=== PATIENT | female | born 1950 | race Caucasian/White ===

== ENCOUNTER 2023-10-27 04:02 | Emergency (ER) | payer OTHER ==
[2023-10-27 04:22] VITALS: RESP 18; TEMP 97.7; BMI 22.4
[2023-10-27] MEDS ORDERED: ACETAMINOPHEN INJECTION 100 ML IVPB ONE (04:44)
[2023-10-27] MEDS ORDERED: morphine CARPU-JECT 2 MG/1 ML DISP.SYRIN IVPUSH ONE (05:19)
[2023-10-27] MEDS: ALBUTEROL SO4 2.5/IPRATROPIUM 0.5 INH SOL 3 ML VIAL.NEB. NEB SCH (05:26)
[2023-10-27] MEDS: ACETAMINOPHEN 1000 MG/100 ML BAG IVPB ONE (05:26)
[2023-10-27] MEDS: LACTATED RINGERS SOLUTION 1000 ML INFUS.BAG IV ONE (05:26)
[2023-10-27 05:33] LABS: VENOUS BASE EXCESS -3.3 mmol/L (-2-2); VENOUS O2 SATURATION 73.1 % (70-80); VENOUS PCO2 34.3 mmHg (38-52); VENOUS PH 7.399 (7.310-7.410)
[2023-10-27 05:34] LABS: BASO % 0.3 % (0-2.0); EOS % 0.1 % (0-4.5); HEMATOCRIT 40.8 % (32.4-45.2); HEMOGLOBIN 13.5 GM/dL (10.7-15.3); LYMPH % 12.4 % (8-40); MCH 33.2 pg (25.7-33.7); MEAN CELL VOLUME 100.6 fl (80-96); MEAN PLT VOLUME 10.4 fl (7.5-11.1); MONO % 5.1 % (3.8-10.2); NEUT % 82.1 % (42.8-82.8); PLATELET COUNT 139 10^3/uL (134-434); RBC 4.05 M/mm3 (3.60-5.2); RDW 14.1 % (11.6-15.6); WHITE BLOOD COUNT 7.4 K/mm3 (4.0-10.0)
[2023-10-27 05:47] LABS: INR 0.97 (0.83-1.09)
[2023-10-27 05:49] LABS: ACTIVATED PTT 31.8 SECONDS (25.2-36.5)
[2023-10-27 05:55] LABS: POTASSIUM 4.1 mmol/L (3.5-5.1)
[2023-10-27 05:58] LABS: ALBUMIN 3.9 g/dl (3.4-5.0); CALCIUM 9.2 mg/dL (8.5-10.1)
[2023-10-27 05:59] LABS: BLOOD UREA NITROGEN 22.3 mg/dL (7-18); MAGNESIUM 2.1 mg/dL (1.8-2.4)
[2023-10-27] MEDS ORDERED: ALBUTEROL SO4 2.5/IPRATROPIUM 0.5 INH SOL 3 ML VIAL.NEB. NEB SCH (06:00)
[2023-10-27 06:01] LABS: CREATININE 1.1 mg/dL (0.55-1.3)
[2023-10-27 06:02] LABS: PHOSPHOROUS 2.6 mg/dL (2.5-4.9)
[2023-10-27 06:03] LABS: BILIRUBIN,TOTAL 0.6 mg/dL (0.2-1); TOT PROT 6.8 g/dl (6.4-8.2)
[2023-10-27] MEDS: ONDANSETRON 4 MG/2 ML VIAL IVPUSH ONE (06:10)
[2023-10-27] MEDS ORDERED: ONDANSETRON 4 MG/2 ML VIAL ONE (06:11)
[2023-10-27] MEDS: SODIUM CHLORIDE 0.9% 500 ML INFUS.BAG IV ONE (07:52)
[2023-10-27 08:06] LABS: EPI CELLS 2 /uL (0-25.1); HYALINE CASTS 0 /uL (0-3.1); PH,URINE 7.5 (5.0-8.0); URINE APPEARANCE CLEAR; URINE BACTERIA 14 /uL (0-1359); URINE BILIRUBIN NEGATIVE (NEGATIVE); URINE COLOR YELLOW; URINE GLUCOSE (UA) NEGATIVE (NEGATIVE); URINE KETONE 1+ (NEGATIVE); URINE LEUK ESTERASE NEGATIVE (NEGATIVE); URINE NITRITE NEGATIVE (NEGATIVE); URINE PROTEIN NEGATIVE (NEGATIVE); URINE RBC 186 /uL (0-23.9); URINE UROBILINOGEN 0.2 mg/dL (0.2-1.0); URINE WBC 6 /uL (0-25.8)
[2023-10-27 11:33] VITALS: BP 125/53; PULSE 70
[2023-10-27] MEDS: morphine CARPU-JECT 2 MG/1 ML DISP.SYRIN IVPUSH ONE (12:25)
== END 2023-10-27 13:50 | disposition home or self-care (01) ==
LOC: JER 04:02
PROC: 3E033NZ Introduction of Analgesics, Hypnotics, Sedatives into Peripheral Vein, Percutaneous Approach (ICD-10-PCS; principal; 2023-10-27)
PROC: 3E033GC Introduction of Other Therapeutic Substance into Peripheral Vein, Percutaneous Approach (ICD-10-PCS; 2023-10-27)
PROC: 3E0F7GC Introduction of Other Therapeutic Substance into Respiratory Tract, Via Natural or Artificial Opening (ICD-10-PCS; 2023-10-27)
DX: M54.9 Dorsalgia, unspecified (principal); N20.0 Calculus of kidney; R10.32 Left lower quadrant pain; R11.0 Nausea; N39.0 Urinary tract infection, site not specified; N12 Tubulo-interstitial nephritis, not specified as acute or chronic; Z20.822 Contact with and (suspected) exposure to COVID-19
CPT/HCPCS: 0241U-QW; 36415; 71045-TC-FY; 74176-TC; 80053; 81003; 82803; 83735; 84100; 84484; 85025; 85610; 85730; 87086; 93005; 93010; 99285-25; J0131